=== PATIENT | female | born 1990 | race African-American/Black ===

== ENCOUNTER 2025-02-08 14:00 | Inpatient (IN) | payer SELFPAY ==
[~2025-02-08] VITALS: Ht 167.6 cm; Wt 138.9 kg
[2025-02-08 14:04] VITALS: O2SAT 99
[2025-02-08] MEDS: SODIUM CHLORIDE 0.9% 1,000 ML IV ONE (16:00)
[2025-02-08] MEDS: DIAZEPAM 5 MG/ML 2ML SYR IV ONE ×2 (16:00→20:54)
[2025-02-08] MEDS: MECLIZINE 25MG TABLET PO STA (16:01)
[2025-02-08] MEDS: ONDANSETRON HCL 4MG/2ML INJ IV ONE (16:01)
[2025-02-08 16:08] LABS: HEMATOCRIT. 44.2 % (36.0-48.0); HEMOGLOBIN. 14.1 g/dL (12.0-16.0); MEAN PLATELET VOLUME 7.9 fl (7.4-10.4); PLATELET 217 x1000/uL (130-400); RED BLOOD CELL COUNT 5.32 mill/uL (4.2-5.4); RED CELL DISTRIBUTION WIDTH 16.1 % (11.6-14.6)
[2025-02-08] MEDS: HYDRALAZINE 20MG/ML VIAL IV ONE ×2 (16:16→17:59)
[2025-02-08 16:22] LABS: CREATININE 0.8 mg/dL (0.6-1.0); HCG SCREEN NEGATIVE
[2025-02-08 16:23] LABS: UREA NITROGEN BLOOD 7 mg/dL (9-23)
[2025-02-08 16:24] LABS: ASPARTATE AMINOTRANSFERASE 29 IU/L (<34)
[2025-02-08 16:25] LABS: BILIRUBIN DIRECT 0.1 mg/dL (<=3.0); BILIRUBIN TOTAL 0.4 mg/dL (0.1-1.0); PROTEIN TOTAL 7.6 g/dL (6.0-8.3)
[2025-02-08 16:26] LABS: LYMPHOCYTES % MANUAL 10.0 % (20.0-60.0); MONOCYTES % MANUAL 3.0 % (2.0-8.0); NEUTROPHILS % MANUAL 87.0 % (45.0-75.0); PLATELET ESTIMATE NORMAL
[2025-02-08] MEDS: METOPROLOL TARTRATE 5MG/5ML VIAL IV ONE (20:00)
[2025-02-08] MEDS: METOCLOPRAMIDE HCL 10MG/2ML VIAL IV ONE (20:54)
[2025-02-08 22:22] VITALS: BP 159/95; PULSE 102; RESP 18; TEMP 36.3624
[2025-02-08] MEDS ORDERED: ONDANSETRON HCL 4MG/2ML INJ IV PRN (23:30)
[2025-02-08] MEDS ORDERED: ACETAMINOPHEN 325MG TABLET PO PRN (23:30)
[2025-02-08] MEDS ORDERED: HYDRALAZINE 20MG/ML VIAL IV PRN (23:30)
[2025-02-08] MEDS ORDERED: DIPHENHYDRAMINE 50MG/ML VIAL IV PRN (23:30)
[2025-02-09] VITALS: BP 186/103; PULSE 110; RESP 20; TEMP 36.7; O2SAT 100
[2025-02-09] LABS: T4 FREE 1.37 ng/dL (0.89-1.76)
[2025-02-09] MEDS: NIFEDIPINE XL 90MG TAB PO SCH (01:46)
[2025-02-09 04:00] VITALS: BP 152/90; PULSE 113; RESP 18; TEMP 36.7; O2SAT 99
[2025-02-09] MEDS: SODIUM CHLORIDE 0.9% 3ML FLUSH IVF SCH (06:01)
[2025-02-09 08:00] VITALS: BP 157/95; PULSE 104; RESP 16; TEMP 36.4; O2SAT 100
[2025-02-09 12:00] VITALS: BP 164/96; PULSE 102; RESP 16; TEMP 36.4; O2SAT 98
[2025-02-09 13:20] LABS: *AMPHETAMINES SCREEN URINE NEGATIVE (NEGATIVE); *BARBITURATES SCREEN URINE NEGATIVE (NEGATIVE); *BENZODIAZEPINES SCREEN URINE NEGATIVE (NEGATIVE); *COCAINE SCREEN URINE NEGATIVE (NEGATIVE); CANNABINOID URINE SCREEN NEGATIVE (NEGATIVE); ECSTASY MDMA SCREEN URINE NEGATIVE (NEGATIVE); METHADONE URINE SCREEN NEGATIVE (NEGATIVE); OPIATES URINE SCREEN NEGATIVE (NEGATIVE); PHENCYCLIDINE URINE SCREEN NEGATIVE (NEGATIVE)
[2025-02-09] MEDS: ACETAMINOPHEN 325MG TABLET PO PRN (13:32)
[2025-02-09] MEDS: MECLIZINE 25MG TABLET PO PRN (14:03)
[2025-02-09] MEDS: CLONIDINE 0.1MG TABLET PO PRN (14:03)
[2025-02-09 16:00] VITALS: BP 114/71; PULSE 79; RESP 18; TEMP 36.5; O2SAT 97
[2025-02-09] MEDS: METOPROLOL SUCCINATE 50MG ER TABLET PO SCH (18:50)
[2025-02-09 20:00] VITALS: BP 142/97; PULSE 78; RESP 18; TEMP 36.6; O2SAT 98
[2025-02-10] VITALS: BP 165/112; PULSE 76; RESP 18; TEMP 36.8
[2025-02-10] MEDS: ZOLPIDEM TARTRATE 5MG TABLET PO PRN (00:56)
[2025-02-10 04:00] VITALS: BP 147/106; RESP 18; TEMP 37.1; O2SAT 98
[2025-02-10 08:00] VITALS: BP 138/99; PULSE 76; RESP 18; TEMP 36.5; O2SAT 99
[2025-02-10 12:00] VITALS: BP 135/81; PULSE 71; RESP 18; TEMP 36.3; O2SAT 99
[2025-02-10] MEDS ORDERED: MECL-299 PO (15:06)
[2025-02-10] MEDS ORDERED: NIFE90TA60 PO (15:06)
[2025-02-10] MEDS ORDERED: METO-385 PO (15:06)
[2025-02-10 16:00] VITALS: BP 133/84; PULSE 70; RESP 20; TEMP 36.3; O2SAT 99
[2025-02-10 17:14] VITALS: BP 133/133; PULSE 79; RESP 20; TEMP 97.4
== END 2025-02-10 16:20 | disposition home or self-care (01) | DRG 111 ==
LOC: ER 14:00 → EDBEDREQTM 20:14 → EDBEDREQSVC 20:14 → EDBEDREQ 20:14 → ENRESERV 21:40 → 6WST 22:15
PROVIDERS: ADMIT Internal Medicine; ATTEND Internal Medicine
DX: R42 Dizziness and giddiness (principal); I10 Essential (primary) hypertension; J45.909 Unspecified asthma, uncomplicated
CPT/HCPCS: 36415; 80048; 80076; 80305; 82962; 83735; 84439; 84443; 84703; 85025; 96374; 96375; 96376; 99285; J0360; J2405; J2765; J3490; J7030; J8597